=== PATIENT | male | born 1950 | race African-American/Black ===

== ENCOUNTER 2018-04-15 20:36 | Emergency (ER) | payer MEDICARE, OTHER ==
[~2018-04-15] VITALS: Ht 167.6 cm; Wt 79.0 kg
[~2018-04-15 20:36] MED LIST: METF-416 PO; SITA100T11 PO
[2018-04-15] MEDS ORDERED: ONDANSETRON HCL 4MG/2ML INJ IV STA (20:59)
[2018-04-15] MEDS ORDERED: SODIUM CHLORIDE 0.9% 1,000 ML IV ONE (20:59)
[2018-04-15 21:39] LABS: HEMATOCRIT. 34.8 % (42.0-52.0); HEMOGLOBIN. 11.5 g/dL (14.0-18.0); MEAN CORPUSCULAR HEMOGLOBIN 27.9 pg (28.0-32.0); MEAN CORPUSCULAR VOLUME 84.7 fL (80.0-94.0); MEAN PLATELET VOLUME 8.1 fl (7.4-10.4); PLATELET 205 x1000/uL (130-400); RED BLOOD CELL COUNT 4.11 mill/uL (4.7-6.1); RED CELL DISTRIBUTION WIDTH 15.4 % (11.6-14.6)
[2018-04-15 21:46] LABS: CHLORIDE 110 mEq/L (98-107); INR 1.1; PROTHROMBIN TIME 10.7 sec (9.1-11.1)
[2018-04-15 21:58] LABS: PLATELET ESTIMATE NORMAL
[2018-04-15] MEDS ORDERED: VISCOUS LIDOCAINE 2% 15 ML UDC MM PRN (23:00)
[2018-04-16 00:18] VITALS: BP 127/83
== END 2018-04-16 00:22 | disposition home or self-care (01) ==
LOC: ER 20:36
DX: R11.2 Nausea with vomiting, unspecified (principal); N18.9 Chronic kidney disease, unspecified; E11.22 Type 2 diabetes mellitus with diabetic chronic kidney disease
CPT/HCPCS: 36415; 71045; 80053; 85025; 85610; 93005; 96361; 96374; 99284; J2405; J7030